=== PATIENT | male | born 1940 | race Caucasian/White ===

== ENCOUNTER 2023-02-20 08:18 | Day surgery (SDC) | payer MEDICARE, OTHER ==
[~2023-02-20] VITALS: Ht 175.3 cm; Wt 71.2 kg
[~2023-02-20 08:18] MED LIST: ALTOPREV40 MG PO; JANUVIA50 MG PO; LISINOPRIL2.5 MG PO; METFORMIN HCL1000 M1 PO; MULTI VITAMIN1 EACH PO; NAPROSYN500 MG PO; TROSPIUM CHLORI20 MG PO
[2023-02-20 08:45] VITALS: BP 138/73
--- NOTE | 2023-02-20 10:51 | NUR ---
02/20/23 Stephon1 Mary Lama 1046-PATIENT ARRIVED TO PACU AWAKE ON RA RR EVEN. PATIENT DENIES PAIN OR NAUSEA. IVF INFUSING. ABDOMEN SOFT ENCOURAGED TO PASS GAS. PATIENT IS PASSING GAS.
[2023-02-20 11:17] VITALS: BP 129/68
--- NOTE | 2023-02-20 18:15 | OR ---
[facility] [address], [place] [address] Signed DATE OF OPERATION: 02/20/2023 SURGEON: Yanet Tee MD PREOPERATIVE DIAGNOSES: 1. Chronic loose stool. 2. History of mild microscopic lymphocytic colitis in 2005 at age 65. 3. Moderate pandiverticulosis. POSTOPERATIVE DIAGNOSES: 1. Moderate pandiverticulosis. 2. Minimal internal hemorrhoid tissue. PROCEDURE: Colonoscopy with hot biopsy. ESTIMATED BLOOD LOSS: None. INDICATIONS: Carter is an 82-year-old diabetic gentleman, asked to see me for a followup screening colonoscopy. I helped him with a colonoscopy in 2005 at the age of 65. He has chronically loose stool. He had mild microscopic lymphocytic colitis on his biopsies back then. He cannot recall if he took any prednisone or budesonide. Sometimes lymphocytic colitis is self-limiting. He said his stools really have not changed, really does not bother him. He said it is two or three times a day. He mowing the grass and so forth. He had been recommended to come back in 10 years. He said he has no family history of colon cancer or polyps. He had done well with Versed and fentanyl previously. In the office, I gave him a pamphlet on colonoscopy. His was with him. We reviewed the nature of the colonoscopy. He understands there is risk including, but not limited to gas bloating, crampy abdominal pain, bleeding, perforation requiring surgery, and missed diagnosis. We also reviewed the written instructions for the bowel prep line by line. He recalls the need for IV conscious sedation. He had expressed understanding and wished to proceed. DESCRIPTION OF PROCEDURE: Carter was taken into our endoscopy suite and placed in the left lateral decubitus position. He was given 3 mg of Versed and 100 mcg of fentanyl to cover the case. A digital rectal exam was performed. He had good sphincter tone. There were no external hemorrhoids. His prostate was absent. There were no nodules. No masses noted. The Electronically Signed By: YANET TEE MD 02/20/23 1815 PATIENT NAME: CARTER KUMAR OPERATIVE REPORT DATE OF : 36 REPORT #: [id number] PHYSICIAN: YANET TEE MD PCP: COURT SALINAS PA-C REPORT IS CONFIDENTIAL AND NOT TO BE RELEASED WITHOUT AUTHORIZATION [facility] [address], [place] [address] Signed adult colonoscope had been introduced and advanced all around into the cecum under direct visualization of camera without difficulty. Overall, his prep was good. He indeed has moderate pandiverticulosis. We could easily see the cecum and his ileocecal valve. The scope was then slowly withdrawn. We took pictures throughout for photodocumentation. Again, he has cmizzels-sf-bwisy size diverticula throughout the entire colon. They were moderate in number and scattered about. There were no polyps. The rectum was unremarkable. Upon retroflexion of scope, there was very minimal internal hemorrhoid tissue. After this, the gas was suctioned out. The colonoscope removed. Carter tolerated the procedure quite well. RECOMMENDATIONS: Carter can follow up as needed for future screening colonoscopies. Yanet Tee MD ALB/MODL /[id number] cc: MD Court Burns PA-C Patient Chart Copies: YANET TEE MD, CHLOE K PA-C ~ Electronically Signed By: YANET TEE MD 02/20/23 1815 PATIENT NAME: CARTER KUMAR Sue OPERATIVE REPORT DATE OF : 36 REPORT #: [id number] PHYSICIAN: YANET TEE MD PCP: COURT SALINAS PA-C REPORT IS CONFIDENTIAL AND NOT TO BE RELEASED WITHOUT AUTHORIZATION
== END 2023-02-20 11:30 | disposition home or self-care (01) ==
LOC: DS 08:18
PROVIDERS: ATTEND Colon & Rectal Surgery
DX: Z12.11 Encounter for screening for malignant neoplasm of colon (principal); K57.30 Diverticulosis of large intestine without perforation or abscess without bleeding; K64.8 Other hemorrhoids; R19.5 Other fecal abnormalities; I10 Essential (primary) hypertension; E11.9 Type 2 diabetes mellitus without complications; E78.5 Hyperlipidemia, unspecified; M19.90 Unspecified osteoarthritis, unspecified site; E78.00 Pure hypercholesterolemia, unspecified; Z85.46 Personal history of malignant neoplasm of prostate; Z79.84 Long term (current) use of oral hypoglycemic drugs; Z79.899 Other long term (current) drug therapy
CPT/HCPCS: 99153; G0500; J2250; J3010; J7121

== ENCOUNTER 2023-08-16 22:32 | Inpatient (IN) | payer MEDICARE, OTHER ==
[~2023-08-16] VITALS: Ht 175.3 cm; Wt 66.6 kg
--- OUTSIDE RECORDS SUMMARY | 2023-08-16 22:40 | XMS ---
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 Ankit VISIT COUNT (12 MO.) 2 [facility] TOTAL 2 NOTE: Visits indicate total known visits. ED/UCC VISIT TRACKING (12 MO.) 08/16/2023 22:33 [facility] [place] TYPE: Emergency COMPLAINT: - RECTAL BLEEDING 08/16/2023 18:04 [facility] [place] TYPE: Emergency COMPLAINT: - RECTAL BLEEDING INPATIENT VISIT TRACKING (12 MO.) No inpatient visits to display in this time frame [email or web address]
[2023-08-16 23:03] LABS: BASOPHILS 0.3 % (0-2); EOSINOPHILS 4.2 % (0-6); HEMATOCRIT 26.2 % (35.0-50.0); LYMPHOCYTES 26.9 % (24-44); MCH 32.1 (27-36); MCHC 34.1 g/dl (30-36); MCV 94.1 fl (81-99); MONOCYTES 8.7 % (0-12); NEUTROPHILS 59.9 % (39-80); PLATELET COUNT 176 K/uL (140-440); RBC 2.79 M/ul (4.3-5.7); RDW 14.1 (10.5-15.0)
[2023-08-17] VITALS (10 sets, daily range): BP systolic 100–147; BP diastolic 52–68
[2023-08-17] LABS: ABO A; ANTIBODY SCREEN NEGATIVE; RH POSITIVE
[2023-08-17 00:01] LABS: IS CROSSMATCH COMPATIBLE
[2023-08-17 00:02] LABS: IS CROSSMATCH COMPATIBLE
--- NOTE | 2023-08-17 00:13 | NUR ---
PT ARRIVES FROM ED, ADMITTED FOR GI BLEED AND COVID POSITIVE. PT ARRIVES ALERT AND ORIENTED X 4, IS FRIENDLY AND TALKATIVE. DENIES PAIN CURRENTLY, DENIES NAUSEA. ADMISSION ASSESSMENT AND ORIENTATION DONE. PT STATES HE HAD COVID SX PRIOR BUT ARE MOSTLY GONE NOW, JUST A LITTLE CONGESTION AND SLIGHT COUGH NOW. PT ARRIVES ON ROOM AIR WITH SPO2 97%, RR 12 AND HR 80'S SINUS RHYTHM.
[2023-08-17 01:09] LABS: BASOPHILS 0.1 % (0-2); EOSINOPHILS 1.7 % (0-6); HEMOGLOBIN 8.8 g/dL (12.0-18.0); LYMPHOCYTES 11.3 % (24-44); MCH 31.8 (27-36); MCHC 33.9 g/dl (30-36); MCV 93.8 fl (81-99); MONOCYTES 5.7 % (0-12); NEUTROPHILS 81.2 % (39-80); PLATELET COUNT 156 K/uL (140-440); RBC 2.77 M/ul (4.3-5.7); RDW 13.9 (10.5-15.0)
--- NOTE | 2023-08-17 02:08 | NUR ---
PT RESTING WITH EYES CLOSED, RESP EVEN AND UNLABORED, HR 80'S SINUS RHYTHM.
--- NOTE | 2023-08-17 04:00 | NUR ---
PT REMAINS RESTING WITH EYES CLOSED, RESP EVEN AND UNLABORED, HR 70-80'S.
--- NOTE | 2023-08-17 05:10 | NUR ---
IN TO DRAW AM LABS, PT AWAKE IN BED, DENIES PAIN/NEEDS.
[2023-08-17 05:45] LABS: BASOPHILS 0.2 % (0-2); EOSINOPHILS 4.6 % (0-6); HEMATOCRIT 24.8 % (35.0-50.0); HEMOGLOBIN 8.5 g/dL (12.0-18.0); LYMPHOCYTES 28.7 % (24-44); MCH 31.8 (27-36); MCHC 34.1 g/dl (30-36); MCV 93.3 fl (81-99); MONOCYTES 8.5 % (0-12); PLATELET COUNT 154 K/uL (140-440); RBC 2.66 M/ul (4.3-5.7)
--- NOTE | 2023-08-17 06:47 | NUR ---
PT UP TO BSC, NO STOOL BUT DID VOID 800MLS YELLOW CLEAR URINE. PT DENIED ANY DIZZINESS/LIGHTHEADEDNESS WHILE UP. HR DID GO FROM 80 TO 110 WHILE UP AND QUICKLY BACK DOWN TO 80'S ONCE HE WAS BACK IN BED.
[2023-08-17 06:54] LABS: ANION GAP 11.5 (7-21); BUN/CREATININE RATIO 23.71 (6.0-28.6); CALCIUM 8.3 mg/dL (8.5-10.1); CREATININE, SERUM 0.97 mg/dL (0.70-1.30); POTASSIUM 4.5 mmol/L (3.5-5.1)
--- NOTE | 2023-08-17 07:34 | NUR ---
REPORT RECEIVED FROM NIGHT RN - PT RESTING IN BED ON BACK WITH EYES CLOSED, RR EVEN AND UNLABORED. CALL LIGHT AT SIDE. VS STABLE ON MONITOR AT RN STATION.
--- NOTE | 2023-08-17 08:28 | NUR ---
RN IN ROOM ROUNDING WITH MD. PT AAO, DENIES PAIN OR NAUSEA. IV SITE PATENT. NO BM THIS AM. BREAKFAST PROVIDED, PT SITTING UP ON EDGE OF BED TO EAT, ABLE TO REPOSITION SELF IN BED INDEPENDENTLY.
--- NOTE | 2023-08-17 09:49 | NUR ---
PT FINISHED WITH BREAKFAST, ATE 100% WITHOUT NAUSEA OR PAIN. UP TO BED SIDE CHAIR TO RECLINE. IN GOOD SPIRITS, TALKATIVE. PLACED PHONE CALL TO UPDATE ON POC. CALL LIGHT IN REACH.
--- NOTE | 2023-08-17 11:03 | NUR ---
PT ASSISTED UP TO BATHROOM STANDBY TO ATTEMPT BM. PT STEADY ON FEET, DENIES DIZZINESS. UNABLE TO PRODUCE BM BUT REPORTS PASSING GAS. BACK TO CHAIR WITH CALL LIGHT AND REMOTE AT BEDSIDE TABLE.
--- NOTE | 2023-08-17 12:45 | NUR ---
RN IN ROOM TO CHECK CBG AND PROVIDE LUNCH. PT SITTING UP IN CHAIR WITHOUT COMPLAINTS.
--- NOTE | 2023-08-17 13:20 | NUR ---
PT ASSISTED UP TO BATHROOM TO HAVE BM - MEDIUM FORMED BM WITH DARRYN RED BLOOD NOTED IN TOILET. PT DENIES DIZZINESS, VS STABLE WITH HR WNL. BACK TO CHAIR WITHOUT DIFFICULTY AMBULATING. CALL LIGHT IN REACH. UPDATED.
[2023-08-17 14:00] LABS: BASOPHILS 0.3 % (0-2); EOSINOPHILS 4.1 % (0-6); HEMATOCRIT 25.5 % (35.0-50.0); HEMOGLOBIN 8.5 g/dL (12.0-18.0); LYMPHOCYTES 23.5 % (24-44); MCH 31.7 (27-36); MCHC 33.3 g/dl (30-36); MCV 95.3 fl (81-99); MONOCYTES 7.1 % (0-12); PLATELET COUNT 167 K/uL (140-440); RBC 2.67 M/ul (4.3-5.7); RDW 14.3 (10.5-15.0)
--- NOTE | 2023-08-17 14:51 | NUR ---
RN ROUNDING ON PT - PROVIDED A CUP OF COFFEE PER REQUEST. PT SITTING IN CHAIR, TALKING ABOUT AND MIL AT HOME. CALL LIGHT IN REACH.
--- NOTE | 2023-08-17 16:04 | NUR ---
PATIENT UP TO BATHROOM TO ATTEMPT TO HAVE A BM. PT STATES HE ONLY HAD GAS, BUT DID VOID. TYPICAL GI BLEED SMELL NOTED FROM PT'S FLATULENCE. PT STEADY ON FEET AND NOW BACK IN CHAIR, RESTING.
--- NOTE | 2023-08-17 20:17 | NUR ---
PT SITTING UP IN RECLINER, HE REPORTS HE HAS NO PAIN OR NAUSEA, HE SAID "I HOPE I GET TO GO HOME TOMORROW, MY BROUGHT MY GOING HOME CLOTHS" V/S STABLE, ASSESSMENT COMPLETE, NO NEW CONCERNS AT THIS TIME, PT REPORTS HE NEEDS TO USE THE BATHROOM.
--- NOTE | 2023-08-17 20:25 | NUR ---
PT USED BATHROOM , HAD FLATUS AND VOIDED, NOT DARK/DULL COLORED BLOOD AND TOILET PAPER. PT AMBULATED WELL, STEADY GAIT.
--- NOTE | 2023-08-17 21:41 | NUR ---
PT SITTING UP AT RECLINER WATCHING TV, HE IS DRINKING HIS DECAF COFFEE HE REQUESTED, FRESH ICE WATER PROVIDED. PT VOICES CONCERNS ABOUT HIS AND THE WORK OF CARING FOR HIS MOTHER GOPI AT END OF LIFE. STAYED IN ROOM TO TALK WITH PT FOR AWHILE ABOUT THIS SITUATION, HE SAID "I THINK I WILL HAVE TO CALL THE REVEREND SOON AND GET MORE HELP" THIS RN SAID "THAT SOUNDS LIKE A GOOD IDEA, TAKIING CARE OF LOVED ONES AT END OF LIFE IS DIFFICULT TWO FOLD, BOTH PHYSICALLY AND EMOTIONALLY" PT NODDED HIS HEAD "YES, IT HAS BEEN"
--- NOTE | 2023-08-17 23:00 | NUR ---
ROUNDING ON PATIENT, PT ALERT AND ORIENTED, HE FEELS HE NEEDS TO USE BATHROOM BEFORE HE TRIES TO SLEEP, THIS RN INTO PATIENT ROOM TO S/L TO AMBULATE TO BATHROOM. NO BM, FLATUS, AND URINE, PT BACK TO BED, HE HAS NO COMPLAINTS OF PAIN OR NAUSEA. NO REQUESTS AT THIS TIME, CALL LIGHT IN REACH.
[2023-08-18] VITALS (15 sets, daily range): BP systolic 103–141; BP diastolic 51–68
--- NOTE | 2023-08-18 00:09 | NUR ---
PT RESTING IN BED EYES CLOSED, ALERT TO RN AT BEDSIDE. NO CONCERNS OR REQUESTS AT THIS TIME
--- NOTE | 2023-08-18 01:16 | NUR ---
PT CALLED NURSES STATION TO NOTIFY NEED TO USE THE BATHROOM. THIS RN INTO PT ROOM, S/L IVF FOR AMBULATION TO BATHROOM, PT VOIDED 300ML IN HAT AND MISSED HAT MEASURE DEVICE. THEN PT BACK TO BED, NO COMPAINT OF PAIN OR NAUSEA. HE REPORTS HE FEELS GOOD. V/S STABLE. NO NEW CONCERNS AT THIS TIME
--- NOTE | 2023-08-18 03:22 | NUR ---
PT RESTING QUIETLY IN BED, EYES CLOSED RESPIRATION RATE 16/MIN, NO DISTRESS NOTED.
--- NOTE | 2023-08-18 04:57 | NUR ---
PATIENT CALLED NURSES STATION TO REPORT HE NEEDS TO USE THE BATHROOM. THIS RN INTO PATIENT ROOM, PT S/L FOR AMBULATION, PT VOIDED MISSING THE COLLECTION HAT, NOTED SMALL AMOUNT OF DARK/DULL/MAROON BLOOD NOTED ON TOILET PAPER. PT REPORTS NO PAIN, NO NAUSEA, NO LIGHT HEADEDNESS OR DIZZINESS WITH ACTIVITY. HE VERBALIZED DESIRE TO DISCHARGE HOME TODAY. V/S, ASSESSMENT AND BLOOD DRAWN FOR LAB THIS AM COMPLETE. NO NEW CONCERNS, PATIENT REPORTS HE HAS NO NEEDS OR COCNERNS AT THIS TIME. HE IS ALERT AND ORIENTED, CALL LIGHT IN REACH.
[2023-08-18 04:59] LABS: HEMATOCRIT 26.1 % (35.0-50.0); HEMOGLOBIN 8.8 g/dL (12.0-18.0); PLATELET COUNT 179 K/uL (140-440)
[2023-08-18 05:05] LABS: BASOPHILS 0.3 % (0-2); EOSINOPHILS 5.7 % (0-6); LYMPHOCYTES 28.7 % (24-44); MCH 31.9 (27-36); MCHC 33.8 g/dl (30-36); MCV 94.5 fl (81-99); MONOCYTES 6.4 % (0-12); NEUTROPHILS 58.9 % (39-80); RBC 2.76 M/ul (4.3-5.7); RDW 14.4 (10.5-15.0)
[2023-08-18 05:14] LABS: ALBUMIN 3.2 g/dL (3.4-5.0); ALBUMIN/GLOBULIN RATIO 1.23 (1.1-2.4); ANION GAP 11.4 (7-21); BILIRUBIN, TOTAL 0.2 ng/dL (0.2-1.0); BUN/CREATININE RATIO 18.26 (6.0-28.6); CALCIUM 8.5 mg/dL (8.5-10.1); CREATININE, SERUM 1.04 mg/dL (0.70-1.30); POTASSIUM 4.4 mmol/L (3.5-5.1); PROTEIN, TOTAL 5.8 g/dL (6.4-8.2)
--- NOTE | 2023-08-18 07:25 | NUR ---
pt awake resting with call light in reach. axo x4
--- NOTE | 2023-08-18 07:55 | NUR ---
pt trsf standby assist for cord managment from bed to chair. steady on feet, denies light headed or any symptoms. set up for meal in chair call light in reach, denies needs, assessment benign, vitals taken.
--- NOTE | 2023-08-18 09:50 | NUR ---
IN ROOM WITH DR ALONSO, PT HAS JUST HAD A 200ML LIQ. BM WITH LG AMT OF PIERRE NOTED - PT NOW NPO WITH A DR TEE SURGICAL CONSULT.
--- NOTE | 2023-08-18 12:07 | NUR ---
pt up in chair with call light in hand, vitals taken, bs checked 231 - clear liq. diet
[2023-08-18] MEDS ORDERED: JANUVIA100 MG PO (12:48)
[2023-08-18 12:59] LABS: BASOPHILS 0.3 % (0-2); EOSINOPHILS 3.7 % (0-6); HEMATOCRIT 24.5 % (35.0-50.0); HEMOGLOBIN 8.4 g/dL (12.0-18.0); LYMPHOCYTES 17.7 % (24-44); MCHC 34.1 g/dl (30-36); MCV 93.8 fl (81-99); NEUTROPHILS 71.3 % (39-80); PLATELET COUNT 163 K/uL (140-440); RBC 2.61 M/ul (4.3-5.7)
--- NOTE | 2023-08-18 14:22 | NUR ---
pt amb with rn to br bm 100 ml liquid red bm. pt light headed, back to bed bp 111/63, hr 74, 100% ra. call light in reach and no needs - watching tv.
--- NOTE | 2023-08-18 16:09 | NUR ---
educated pt on gatorade zero bowel prep/miralax clear liq. diet tonight and npo for procedure tomorrow. pt agrees, denies needs, watching tv with call light.
--- NOTE | 2023-08-18 17:21 | NUR ---
dr lopez here to see pt and update on consult - mirlax intake going well, bs 159 1 unit of insulin given sq. call light in reach.
--- NOTE | 2023-08-18 18:30 | NUR ---
this rn assisting pt to bathroom had 400 ml liq bm/blood, 2 person rn assist pt to stand and pivot trsf to ch from toilet - pt feeling light headed, moved to closer to bed when pt became unresponsive and started to vomit clear liquid emesis - and became limp, rn held forward to clear airway while 2nd rn called code blue, pt came to and vitals taken, pt back to bed and more alert and aware. team at bedside and yesica rn placed 2nd iv site in left arm. ordered blood and cbc -
[2023-08-18 18:50] LABS: BASOPHILS 0.8 % (0-2); EOSINOPHILS 3.9 % (0-6); HEMATOCRIT 20.1 % (35.0-50.0); HEMOGLOBIN 6.7 g/dL (12.0-18.0); LYMPHOCYTES 28.1 % (24-44); MCH 32.1 (27-36); MCHC 33.4 g/dl (30-36); MCV 96.1 fl (81-99); MONOCYTES 4.9 % (0-12); NEUTROPHILS 62.3 % (39-80); PLATELET COUNT 204 K/uL (140-440); RBC 2.09 M/ul (4.3-5.7); RDW 14.2 (10.5-15.0)
[2023-08-18 19:11] LABS: ALBUMIN 2.7 g/dL (3.4-5.0); ALBUMIN/GLOBULIN RATIO 1.23 (1.1-2.4); ANION GAP 17.8 (7-21); BILIRUBIN, TOTAL 0.3 ng/dL (0.2-1.0); BUN/CREATININE RATIO 24.75 (6.0-28.6); CALCIUM 8.1 mg/dL (8.5-10.1); CREATININE, SERUM 1.01 mg/dL (0.70-1.30); POTASSIUM 3.8 mmol/L (3.5-5.1); PROTEIN, TOTAL 4.9 g/dL (6.4-8.2)
--- NOTE | 2023-08-18 19:16 | NUR ---
1ST UNIT OF PRBCs STARTED AT 1905 AT 120 ML/HR FOR THE FIRST 30 ML OF BLOOD INTO LEFT FOREARM. PT TOLERATING WELL. PT IS CONVERSIVE AND HAS MINIMAL RECOLLECTION OF RECENT SYNCOPAL EPISODE. PT IS EXTREMELY PALE.
[2023-08-18 19:40] LABS: IS CROSSMATCH COMPATIBLE
--- NOTE | 2023-08-18 19:45 | NUR ---
PT ALERT AND ORIENTED, PATIENT REPORTS NO PAIN OR NAUSEA AT THIS TIME. DISCUSSED PLAN OF CARE FOR TONIGHT. PATIENT HAS A LOT OF STRESS AT HOME WITH HIS MOTHER IN LAW AT END OF LIFE AND HIS LIFE PROVIDING CARE ALONE AT HOME. PT ASSESSMENT COMPLETE, V/S STABLE, FIRST UNIT OF BLOOD INFUSING.
--- NOTE | 2023-08-18 20:30 | NUR ---
BLOOD..FIRST UNIT OF BLOOD COMPLETE. PATIENT HAS NO SIGNS OR SYMPTOMS OF ADVERSE TRANSFUSION REACTION AT THIS TIME. DR.MCBEE WOODALL SEE PATIENT AND DISCUSS PROCEDURE PLANNED FOR TOMORROW. PATIENT IS AGREEABLE TO PROCEDURE AND DOES NOT HAVE ANY FURTHER QUESTIONS FOR .
--- NOTE | 2023-08-18 20:40 | NUR ---
BLOOD..SECOND UNIT OF BLOOD STARTED AT THIS TIME. PT CONITNUES TO HAVE NO SIGNS OR SYMPTOMS OF TRANSFUSION REACTIONS. V/S STABLE, ASSESSMENT COMPLETE
--- NOTE | 2023-08-18 21:45 | NUR ---
PT RESTING IN BED, EYES CLOSED RESP RATE 15/MIN, SLIGHT SNORE NOTED, V/S STABLE. BLOOD INFUSING. CALL LIGHT IN REACH
--- NOTE | 2023-08-18 21:50 | NUR ---
CALLED TO TALK WITH THIS RN TO PLAN OF CARE, SAID HE ORDERED 2 ADDITIONAL UNITS OF BLOOD TO TRANSFUSE. THIS RN ASKED ABOUT A CBC TIME AFTER FINISHED TRANFUSING INITIAL 2 UNITS OF BLOOD, HE SAID THIS WILL NOT CHNAGE PLAN OF CARE, WILL CHECK CBC WITH AM LAB DRAW.
--- NOTE | 2023-08-18 22:15 | NUR ---
ROUNDING, PT RESTING IN BED EYES CLOSED RESP RATE 18, NO DISTRESS NOTED. PATIENT ALERT TO RN, BLOOD FINISHED AT 2215, CHECK PT DEPENDS NOTED SMALL BURGUNDY PASTE STOOL IN DEPENDS, PATIENT CHANGED AT THIS TIME, BARRIER CREAM APPLIED TO GLUTEAL CLEFT, MILD REDNESS, NO BREAKDOWN. PATIENT REPORTS NO PAIN OR NAUSEA, HE REPORTS FLATUS.
--- NOTE | 2023-08-18 22:57 | NUR ---
CALLED IN REGARDS TO ADMINISTRATION OF BLOOD ORDER CHANGE, TO CONFIRM AT THIS TIME HE STILL WANTS 2 ADDITIONAL UNITS FOR A TOTAL OF 4 UNITS OF BLOOD.
--- NOTE | 2023-08-18 23:42 | NUR ---
BLOOD..THIRD UNIT OF BLOOD STARTED AT 2320. INFUSED FIRST 15 MIN, NO SIGNS OR SYMPTOMS OF TRANSFUSION REACTION. V/S STABLE NOTED TEMP 99.2, AFTER TWO WARM BLANKET PROVIDED AND ROOM TEMP TURNED UP ONE HOUR AGO.
[2023-08-19] VITALS (27 sets, daily range): BP systolic 108–151; BP diastolic 48–87
--- NOTE | 2023-08-19 00:45 | NUR ---
PT SAT TO SIDE OF BED TO ATTEMPT TO URINATE, PT UNABLE TO VOID SITTING, PT STOOD AT BEDSIDE WITH CONTACT ASSIST, PT VOIDED 150ML, HEART RATE INCREASED TO 118/MIN, THIS RN COULD FEEL PT TREMORS, HAD PT SIT DOWN AND ASSISTED BACK TO BED, PT SAID HE DID NOT FEEL DIZZY OR NAUSEA. BLADDER SCANNED PT FOR GREATER THAN 530ML POST VOID. CALLED TO REPORT THIS AND UPDATE THIRD UNIT OF BLOOD COMPLETED TRASFUSING, ON ASSESSMENT AFTER SECOND UNIT COMPLETED PT HAVING BOUNDING PEDAL AND RADIAL PULSES, IVF HAS BEEN ON TKO SINCE ASSESSMENT, GAVE ORDER TO HOLD IVF UNTIL DAYSHIFT, AND COMPLETE 4 OF 4 UNITS OF BLOOD, ALSO NEW ORDER FOR STRAIGHT OR GAYTAN CATHETER, TO ALLOW PT TO DECIDE, PT REPORTS THAT HE HAS HAD UROLOGY DUE TO DIFFICULTY VOIDING AND HE WOULD LIKE TO HAVE GAYTAN PLACED FOR NOW.
--- NOTE | 2023-08-19 01:10 | NUR ---
REPORT RECEIVED AND CARE ASSUMED FROM XIOMARA BUCHANAN. PT VSS AND NAD NOTED VIA DIRECT OBSERVATION, CONTINUOUS MONITOR AND PT VERBALIZATION.
--- NOTE | 2023-08-19 01:52 | NUR ---
GAYTAN CATHETER PLACED, STERILE FIELD MAINTAINED THROUGHOUT PROCEDURE PT TOLERATED WELL, HE REPORTS NO PAIN, REQUIRED 14 GAUGE COUDE TO PASS THROUGH STRITCHER. CLEAR YELLOW DILUTE URINE RETURNED.
--- NOTE | 2023-08-19 01:56 | NUR ---
FOURTH UNIT OF BLOOD TRANSFUSING AT THIS TIME. PT TOLERATING WELL, HE REMAINS ON ROOM AIR. V/S STABLE. PT ALERT AND ORIENTED.
--- NOTE | 2023-08-19 02:20 | NUR ---
PT STATES HE IS COMFORTABLE, DENIES COMPLAINTS. PT REQUESTED AND PROVIDED CHAPSTICK, DENIES ADDITIONAL NEEDS AT THIS TIME. PT VERBALIZES UNDERSTANDING TO USE CALL LIGHT WITH NEEDS. BED IN LOW, LOCKED POSITION FOR PT SAFETY. 4 UNIT PRBC INFUSING PER ORDERS. VSS AND NAD NOTED VIA DIRECTO BSERVATION, PT STATEMENT AND CONTINUOUS MONITOR.
--- NOTE | 2023-08-19 03:15 | NUR ---
4TH UNIT OF PRBC COMPLETE WITHOUT INCIDENT OR REACTION. PT DENIES COMPLAINTS OR NEEDS AT THIS TIME. CALL LIGHT IN REACH, BED IN LOW, LOCKED POSITION. VSS AND NAD NOTED VIA CONTINUOUS MONITOR, DIRECT OBSERVATION AND PT VERBALIZATION.
--- NOTE | 2023-08-19 04:20 | NUR ---
SHIFT ASSESSMENT COMPLETE. SEE [employer] FOR DETAILS. PT RESTING IN BED, EYES CLOSED, EASILY AWAKENED TO VOICE. PT DENIES NEEDS AT THIS TIME. LUCILA PATENT. BED IN LOW, LOCKED POSITION. PT VERBALIZES UNDERSTANDING TO USE CALL LIGHT WITH NEEDS. VSS AND NAD NOTED VIA DIRECT OBSERVATION, PT VERBALIZATION AND CONTINUOUS MONITOR.
[2023-08-19 05:42] LABS: BASOPHILS 0.4 % (0-2); EOSINOPHILS 1.6 % (0-6); HEMATOCRIT 32.8 % (35.0-50.0); LYMPHOCYTES 12.4 % (24-44); MCH 29.9 (27-36); MCHC 33.6 g/dl (30-36); MONOCYTES 6.3 % (0-12); NEUTROPHILS 79.3 % (39-80); PLATELET COUNT 129 K/uL (140-440); RBC 3.68 M/ul (4.3-5.7); RDW 15.5 (10.5-15.0)
[2023-08-19 05:59] LABS: ALBUMIN 2.7 g/dL (3.4-5.0); ALBUMIN/GLOBULIN RATIO 1.35 (1.1-2.4); ANION GAP 14.2 (7-21); BILIRUBIN, TOTAL 0.5 ng/dL (0.2-1.0); BUN/CREATININE RATIO 23.86 (6.0-28.6); CREATININE, SERUM 0.88 mg/dL (0.70-1.30); POTASSIUM 4.2 mmol/L (3.5-5.1); PROTEIN, TOTAL 4.7 g/dL (6.4-8.2)
[2023-08-19 06:18] LABS: ABO A; ANTIBODY SCREEN NEGATIVE; RH POSITIVE
[2023-08-19 06:22] LABS: INR 1.16 (0.80-1.30); PROTIME 14.4 Sec (11.2-14.2)
[2023-08-19 06:24] LABS: PARTIAL THROMBOPLASTIN TIME 24.5 Sec (22.9-41.3)
--- NOTE | 2023-08-19 06:54 | NUR ---
DR. DUFF CALLED FOR PT STATUS UPDATE. PT RESTING IN BED WITH EYES OPEN. PT DENIES NEEDS AT THIS TIME. VSS AND NAD NOTED VIA DIRECT OBSERVATION AND CONTINUOUS MONITOR.
--- NOTE | 2023-08-19 07:11 | NUR ---
SHIFT REPORT GIVEN AND CARE ENDORSED TO DAY SHIFT ELECTROPLATING LABORER. PT VSS AND NAD NOTED VIA CONTINUOUS MONITOR.
--- NOTE | 2023-08-19 07:30 | NUR ---
REPORT RECEIVED. PATIENT IS RESTING IN BED.
--- NOTE | 2023-08-19 08:45 | NUR ---
ASSESSMENT DONE. DENIES PAIN. PLAN FOR COLONOSCOPY TODAY. PATIENT AWARE. IVF PATENT. NO ACTIVE BLEEDING NOTED.
--- NOTE | 2023-08-19 08:45 | NUR ---
PATIENT AWAKE IN BED, VITALS AND I&OS CHARTED. GAYTAN EMPTIED. PATIENT IS NPO, ORAL SWABS PROVIDED FOR COMFORT. DENTURES IN MOUTH. CALL LIGHT IN EASY REACH, [place]OTH PROVIDED FOR FACE AND HANDS. NO OTHER NEEDS AT THIS TIME
--- NOTE | 2023-08-19 10:30 | NUR ---
LAYING IN BED WATCHING TV. DENIES PAIN. NO FUTHER BM THIS AM
--- NOTE | 2023-08-19 10:54 | NUR ---
UR NOTE: MCG MET OBSERVATION ON ADMIT MET INPATIENT STAY ON 08/18 WITH CONTINUED ACTIVE BLEEDING AND DECREASING HGB
--- NOTE | 2023-08-19 11:55 | NUR ---
ACCUCHECK-[id number]. INSULIN HELD PATIENT NPO FOR COLONSCOPY.
--- NOTE | 2023-08-19 12:00 | NUR ---
REMAINS NPO. COLONOSCOPY TO BE DONE THIS AFTERNOON. ASSESSMENT UNCHANGED.
--- NOTE | 2023-08-19 12:31 | NUR ---
PATIENT AWAKEIN BED. VITALS AND I&OS CHARTED. GAYTAN EMPTIED AND CHARTED. RN AT BEDSIDE. PATIENT REPOSITIONED FOR COMFORT.
--- NOTE | 2023-08-19 14:00 | NUR ---
NAPPING. NO DISTRESS NOTED.
--- NOTE | 2023-08-19 15:15 | NUR ---
INC OF RUST COLORED STOOL. LR ON STRAIGHT TUBING HUNG. DENIES PAIN.
--- NOTE | 2023-08-19 15:55 | NUR ---
TO OR VIA STRETCHER ACCOMP BY OR STAFF FOR COLONOSCOPY.
--- NOTE | 2023-08-19 17:15 | NUR ---
RETURN TO CCU. PATIENT IS SOMULENT. RECEIVED 80 MG OF PROPOFOL DURNING COLONOSCOPY. REPORT RECEIVED. IVF INFUSING TO LEFT WRIST IV SITE.
--- NOTE | 2023-08-19 19:46 | CONS ---
[facility] [address], [place] [address] Signed DATE OF CONSULTATION: 08/18/2023 REQUESTING PHYSICIAN: Bashir Christina MD. PROBLEM: Hematochezia, known diverticulosis. HISTORY: This 83-year-old white male, was admitted by Dr. Francisco Park, hospitalist on August 16, 2023, with blood per rectum. The patient has been relatively stable since admission to the hospital. Care was assumed by Dr. Christina and the patient was noted to have additional relatively bright blood per rectum. He was noted to have a hematocrit in the mid 20s. Additional and persistent rectal bleeding was noted by Dr. Christina, and on that basis, consultation was made early in the day for consideration of colonoscopy tomorrow. A MiraLAX based bowel prep was initiated by Dr. Christina anticipating my evaluation later in the day. Notably, his hematocrit yesterday, August 17 was 24.8, rising to 25.5 and this morning at 26.1, then 24.5. During the course of his bowel preparation with MiraLAX, he was having a bowel movement and had rather significant syncopal changes as well as three bloody bowel movements during the course of his bowel prep through the course of today. A rapid response team was called and he had prompt recovery upon being returned to bed. His hematocrit was obtained and was 20.1. Transfusion therapy is underway at this time. The patient feels quite well overall and is hemodynamically stable at this time. His heart rate is noted to be 87, blood pressure 116/55. He did have some emesis during the course of his recent episode, which showed no evidence of blood whatsoever. Additional blood is being transfused at this time, at least 2 units anticipating re-evaluation of hematocrit following transfusion. The patient has no complaints of abdominal pain. He has no shortness of breath or other particular symptoms at this time. Notably, the patient has undergone colonoscopy by Dr. Yanet Tee in the past several months, confirming diverticulosis. The patient is and is caring for his [id number] who is 89 years old. End of life issues are being organized for her. Electronically Signed By: JEFFERSON DUFF MD 08/19/231945 PATIENT NAME: TUAN KUMAR CONSULTATION DATE OF : 36 REPORT #: [id number] PHYSICIAN: JEFFERSON DUFF MD PCP: GIN SALINAS PA-C REPORT IS CONFIDENTIAL AND NOT TO BE RELEASED WITHOUT AUTHORIZATION [facility] [address], [place] [address] Signed The patient is remarkably Corey for his advanced years. He shows no signs or symptoms of dementia in any way and is a reliable historian. Review of lab studies from today show normal electrolytes. CO2 is low at 19. Liver enzymes are normal. Glucose 218. Electrolytes normal. His admission hematocrit was 24.5, now currently 20.1. Serology showed positive coronavirus; his [id number] had coronavirus approximately 6 weeks ago. The patient believes that is contributing to her imminent demise now, though she is not in the hospital setting. Review of his colonoscopy report from February 20, 2023, confirmed moderate pandiverticulosis and minimal internal hemorrhoidal changes. The patient has no knowledge of family history of colon cancer or other colonic problems. MEDICATIONS: At admission included Naprosyn, lovastatin, multivitamins, metformin, lisinopril, Januvia, and trospium. To my knowledge, no coagulation studies have been obtained thus far. REVIEW OF SYSTEMS: He denies any dysphagia or hematemesis. He has no abdominal pain. He has no back pain and no shortness of breath. He has no chest pain. PHYSICAL EXAMINATION: GENERAL: An elderly white man who appears younger than his stated age of 83 years. BMI is 21.7. NECK: Trachea is midline. He has no hoarseness. There is no cervical adenopathy. CHEST: Shows normal respiratory excursion. HEART: Pulses regular at 88. ABDOMEN: Completely soft and easily palpated. There is no palpable mass. No aortic aneurysm. No tenderness. EXTREMITIES: Show no clubbing, cyanosis, or edema. LAB STUDIES: As described. ASSESSMENT AND PLAN: The patient has hematochezia, which was his presenting complaint on admission on August 16. I have conferred with Dr. Christina and plans were made for colonoscopy tomorrow as long as the patient remains stable and without sign for more urgent colonoscopy. A bowel prep appears to have worked reasonably well and his vagal episode associated with it, though notable has resolved entirely. Transfusion is underway as it should be. I will ask that coag studies be undertaken, though they likely will be normal. He is certainly on no listed anticoagulant that I can see. Electronically Signed By: JEFFERSON DUFF MD 08/19/231945 PATIENT NAME: TUAN KUMAR CONSULTATION DATE OF : 36 REPORT #: [id number] PHYSICIAN: JEFFERSON DUFF MD PCP: GIN SALINAS PA-C REPORT IS CONFIDENTIAL AND NOT TO BE RELEASED WITHOUT AUTHORIZATION [address] [address] Signed The risk of bleeding, infection, and perforation related to colonoscopy was reviewed with him. Most of his lower gastrointestinal bleeding related to diverticulosis resolves on its own without specific intervention, but on occasion, clips or other interventions for hemostatic control are required. We are hopeful that he would not require emergent colectomy, though that is a possibility should a bleeding site not be fully identified or controlled. MD CARYL Barnes/ANILA /[id number] cc: MD Yanet Souza MD Dr. Hilborn Chloe K Norris, PA-C Copies: YANET TEE MD, CHLOE K PA-C ~ Electronically Signed By: JEFFERSON DUFF MD 08/19/23 1946 PATIENT NAME: TUAN KUMAR CONSULTATION DATE OF : 36 REPORT #: [id number] PHYSICIAN: JEFFERSON DUFF MD PCP: GIN SALINAS PA-C REPORT IS CONFIDENTIAL AND NOT TO BE RELEASED WITHOUT AUTHORIZATION
--- NOTE | 2023-08-19 19:46 | OR ---
[facility] [address], [place] [address] Signed DATE OF OPERATION: 08/19/2023 SURGEON: Jefferson Duff MD PREOPERATIVE DIAGNOSES: Recurrent lower gastrointestinal bleeding (long-standing known diverticulosis and distant history of lymphocytic colitis). POSTOPERATIVE DIAGNOSES: Extensive diverticulosis. No evidence of active bleeding or source of bleeding. No evidence of colitis. PROCEDURE: Total colonoscopy to cecum. ANESTHESIA: Intravenous sedation; propofol infusion, Jefferson Sykes CRNA INDICATIONS: This 83-year-old white male was admitted by Dr. Park and care assumed by Dr. Christina on August 16, 2023, with lightheadedness and dark red blood per rectum. Consultation was undertaken on the basis of his persistent anemia and ongoing bleeding. During his bowel prep, anticipating colonoscopy yesterday he did have a syncopal episode, which resolved promptly. He had a hematocrit of 24.8 on August 17, 24.5 on August 18 and underwent transfusion therapy to hematocrit of 33. He shows no sign of overt bleeding now and did tolerate the bowel prep ultimately. He is now to undergo colonoscopy to better characterize the problem, assess for ongoing bleeding and treat as appropriate. He understands the risk of bleeding, infection, and perforation related to colonoscopy and wished to proceed. FINDINGS: There was a fair amount of old blood remaining within the colonic effluent. There was no sign of clot. No sign of bright blood and no sign of active bleeding. Complete colonoscopy was undertaken to the cecum; this was rather prolonged and complicated colonoscopy on the basis of these factors. The right and transverse colon appeared to be free of any bleeding and the likely source of any bleeding was more or likely the left colon or sigmoid. The rectum showed no sign of and he certainly had no sign of actual neoplasm. It is my belief that his bleeding has been from sigmoid or left colon. Electronically Signed By: JEFFERSON DUFF MD 08/19/231945 PATIENT NAME: TUAN KUMAR OPERATIVE REPORT DATE OF : 36 REPORT #: [id number] PHYSICIAN: JEFFERSON DUFF MD PCP: COURT REYNA PA-C REPORT IS CONFIDENTIAL AND NOT TO BE RELEASED WITHOUT AUTHORIZATION [facility] [address], [place] [address] Signed DESCRIPTION OF PROCEDURE: The patient was brought to the endoscopy suite and placed in the lateral decubitus position, given intravenous sedation with propofol infusional sedation. Digital rectal examination showed a fair amount of residual gelatinous old blood. There was no sign of bright blood. An Olympus video colonoscope was passed in the rectum and manipulated throughout the colon. Diverticulosis in the sigmoid and left colon was extensive. Copious irrigation was required to advance the scope. The scope was ultimately advanced to the cecum. The ileocecal valve and appendiceal orifice appeared normal. The scope was withdrawn from that point and notably the cecum and right colon appeared to have little if any blood as did the transverse colon. Withdrawal through the left colon including the splenic flexure showed extensive diverticulosis throughout. There was one area in the sigmoid, which I thought may have some stigmata of fresh bleeding, but could never be reidentified to allow for application of hemoclip, but certainly no sign of ongoing bleeding was noted. Further withdrawal confirmed diverticulosis in the distal sigmoid. The rectum itself appeared normal. Retroflexed view showed no evidence of rectal neoplasm or hemorrhoidal tissue to account for bleeding. Scope was straightened, withdrawn and removed. The patient was taken to the recovery room in good condition. CONCLUDING DIAGNOSIS: GI bleeding most likely from diverticulosis, most probably sigmoid and left colon. PLAN: If recurrent significant bleeding should occur, consideration will be made for a tagged red cell scan. Colectomy directed by a bleeding scan would be reasonable if necessary. MD CARYL Barnes/MODL /[id number] cc: Dr. Carri Park Electronically Signed By: JEFFERSON DUFF MD 08/19/231945 PATIENT NAME: TUAN KUMAR OPERATIVE REPORT DATE OF : 36 REPORT #: [id number] PHYSICIAN: JEFFERSON DUFF MD PCP: COURT REYNA PA-C REPORT IS CONFIDENTIAL AND NOT TO BE RELEASED WITHOUT AUTHORIZATION [address] [place], [place] [address] PA-C Copies: COURT REYNA PA-C ~ Electronically Signed By: JEFFERSON DUFF MD 08/19/23 1946 PATIENT NAME: TUAN KUMAR OPERATIVE REPORT DATE OF : 36 REPORT #: [id number] PHYSICIAN: JEFFERSON DUFF MD PCP: COURT REYNA PA-C REPORT IS CONFIDENTIAL AND NOT TO BE RELEASED WITHOUT AUTHORIZATION
[2023-08-19 20:22] LABS: BASOPHILS 0.2 % (0-2); EOSINOPHILS 3.6 % (0-6); HEMATOCRIT 35.7 % (35.0-50.0); HEMOGLOBIN 11.9 g/dL (12.0-18.0); LYMPHOCYTES 15.6 % (24-44); MCH 30.3 (27-36); MCHC 33.5 g/dl (30-36); MCV 90.4 fl (81-99); MONOCYTES 7.2 % (0-12); NEUTROPHILS 73.4 % (39-80); PLATELET COUNT 129 K/uL (140-440); RBC 3.95 M/ul (4.3-5.7); RDW 15.5 (10.5-15.0)
[2023-08-20] VITALS (10 sets, daily range): BP systolic 101–132; BP diastolic 59–91
[2023-08-20 05:39] LABS: BASOPHILS 0.4 % (0-2); EOSINOPHILS 5.1 % (0-6); HEMATOCRIT 31.1 % (35.0-50.0); HEMOGLOBIN 10.4 g/dL (12.0-18.0); MCH 29.8 (27-36); MCHC 33.4 g/dl (30-36); MCV 89.3 fl (81-99); NEUTROPHILS 67.5 % (39-80); PLATELET COUNT 126 K/uL (140-440); RBC 3.48 M/ul (4.3-5.7); RDW 15.5 (10.5-15.0)
[2023-08-20 05:56] LABS: ALBUMIN 2.3 g/dL (3.4-5.0); ALBUMIN/GLOBULIN RATIO 1.05 (1.1-2.4); ANION GAP 11.7 (7-21); BILIRUBIN, TOTAL 0.4 ng/dL (0.2-1.0); BUN/CREATININE RATIO 12.34 (6.0-28.6); CALCIUM 8.1 mg/dL (8.5-10.1); CREATININE, SERUM 0.81 mg/dL (0.70-1.30); POTASSIUM 3.7 mmol/L (3.5-5.1); PROTEIN, TOTAL 4.5 g/dL (6.4-8.2)
--- NOTE | 2023-08-20 07:50 | NUR ---
report from keyona rn, pt in bed with call light in reach, pt resting hr 78
--- NOTE | 2023-08-20 08:00 | NUR ---
PATIENT AWAKE IN BED, VITALS AND I&OS CHARTED/GAYTAN EMPTIED. WASHCLOTH PROVIDED FOR FACE AND HANDS, DENTURES IN. PATIENT ASSISTED TO RECLINER FOR BREAKFAST, TOLERATED WELL. LINEN CHANGED. CALL LIGHT IN EASY REACH. PATIENT RECEIVED CALL FROM STATING HER MOTHER ILL MOTHER AT 0800 THIS MORNING. RN IN ROOM AT THIS TIME
--- NOTE | 2023-08-20 08:18 | NUR ---
call from pt for update, trsf to pt in room, up in for meal. call light in reach.
--- NOTE | 2023-08-20 08:43 | NUR ---
PT UP IN , DENIES NEEDS, REPORTS CALLED AND HIS MOTHER IN LAW PASSED THIS AM AT HIS HOME WITH . PT REPORTS RELEIF THAT SHE IS AT [facility].
[2023-08-20 12:18] LABS: BASOPHILS 0.2 % (0-2); EOSINOPHILS 4.6 % (0-6); HEMATOCRIT 32.3 % (35.0-50.0); HEMOGLOBIN 10.7 g/dL (12.0-18.0); LYMPHOCYTES 18.1 % (24-44); MCH 30.2 (27-36); MCHC 33.2 g/dl (30-36); MONOCYTES 7.6 % (0-12); NEUTROPHILS 69.5 % (39-80); PLATELET COUNT 126 K/uL (140-440); RBC 3.55 M/ul (4.3-5.7); RDW 15.8 (10.5-15.0)
--- NOTE | 2023-08-20 12:56 | NUR ---
EXERCISED MINISTRY OF PRESENCE PT TALKED OF [id number] AND HER PRESENCE IN HIS LIFE. ALSO TALKED OF INCIDENT THAT PROMPTED HOSPITAL VISIT. CONCERNED WITH PATH FORWARD AND LOOKING FORWARD TO CONVERSATION WITH DR. DUFF. EXITED ROOM WHEN ARRIVED FOR CONSULT. ASSURED PT OF MY ONGOING PRAYERS. PRAYED FOR PEACE AND COMFORT FOR FAMILY AND HEALING FOR PT.
[2023-08-20] MEDS ORDERED: PROTONIX40 MG PO (13:21)
--- NOTE | 2023-08-20 13:37 | NUR ---
rn in to dc pt yajaira and sl iv per dr lopez. pt up in chair for reg diet.
--- NOTE | 2023-08-20 14:22 | NUR ---
FOLLOW UP APPOINMENT WITH PCP MADE AT THIS TIME
--- NOTE | 2023-08-20 15:56 | NUR ---
DISCHARGE SUMMARY SENT TO PCP AT THIS TIME
--- NOTE | 2023-08-20 16:10 | NUR ---
DR ALONSO IN TO SEE PT, DC ORDERS FOR TODAY F/U WITH PCP, OMEGA SAID NO F/U NEEDED.
--- NOTE | 2023-08-20 16:39 | NUR ---
PATIENT AWAKE IN RECLINER, IN ROOM. D/C VITALS CHARTED, IV REMOVED. PATIENT DRESSING IN PERSONAL CLOTHING.
--- NOTE | 2023-08-20 17:08 | NUR ---
UR NOTE: MCG MET CASTROINTESTINAL BLEEDING, LOWER (ISC) GL DAY 2 AND GL DAY 3 PLAN FOR DISCHARGE PER DISCHARGE SUMMARY
== END 2023-08-20 17:00 | disposition home or self-care (01) | DRG 377 ==
LOC: ED 22:32 → CCU 22:34
PROVIDERS: Emergency Medicine; Family Medicine; Surgery; ADMIT Family Medicine; ATTEND Family Medicine
PROC: 30233N1 Transfusion of Nonautologous Red Blood Cells into Peripheral Vein, Percutaneous Approach (ICD-10-PCS; 2023-08-18)
PROC: 8E0ZXY6 Isolation (ICD-10-PCS; 2023-08-18)
PROC: 0DJD8ZZ Inspection of Lower Intestinal Tract, Via Natural or Artificial Opening Endoscopic (ICD-10-PCS; principal; 2023-08-19 15:30)
DX: K57.31 Diverticulosis of large intestine without perforation or abscess with bleeding (principal); U07.1 COVID-19; D62 Acute posthemorrhagic anemia; E11.9 Type 2 diabetes mellitus without complications; I10 Essential (primary) hypertension; I95.9 Hypotension, unspecified; E78.00 Pure hypercholesterolemia, unspecified; Z90.49 Acquired absence of other specified parts of digestive tract; Z79.899 Other long term (current) drug therapy; Z79.84 Long term (current) use of oral hypoglycemic drugs; Z98.890 Other specified postprocedural states; Z88.7 Allergy status to serum and vaccine
CPT/HCPCS: 00811; 36415; 80048; 80053; 85025; 85610; 85730; 86850; 86900; 86901; 86922; 96361; 96374; 96376; 99285; C9113; C9803; G0378; J1815; J2704; J7030; P9016; U0002

== ENCOUNTER 2024-03-04 16:11 | Emergency (ER) | payer MEDICARE, OTHER ==
[~2024-03-04] VITALS: Ht 175.3 cm; Wt 67.0 kg
[~2024-03-04 16:11] MED LIST changes: +JANUVIA100 MG PO; +PROTONIX40 MG PO
[2024-03-04] MEDS ORDERED: CEFAZOLIN SOD 1,000 MG/10 ML VIAL IM ONE (16:45)
[2024-03-04] MEDS ORDERED: HYDROCODONE/ACETA 7.5/325 TAB PO ONE (16:45)
[2024-03-04] MEDS ORDERED: DIPHTH,PERTUSS(ACELL),TET VAC 0.5 ML SYRINGE IM ONE (16:45)
[2024-03-04] MEDS ORDERED: CEFAZOLIN SODIUM 1 GM/10 ML SYR IV ONE (17:00)
[2024-03-04] MEDS ORDERED: CEPHALEXIN500 MG PO (18:24)
[2024-03-04 18:49] VITALS: BP 133/73
== END 2024-03-04 18:49 | disposition home or self-care (01) ==
LOC: ED 16:11
DX: S63.125A Dislocation of interphalangeal joint of left thumb, initial encounter (principal); S61.012A Laceration without foreign body of left thumb without damage to nail, initial encounter; S51.012A Laceration without foreign body of left elbow, initial encounter; S51.811A Laceration without foreign body of right forearm, initial encounter; E11.9 Type 2 diabetes mellitus without complications; I10 Essential (primary) hypertension; W18.30XA Fall on same level, unspecified, initial encounter; Z79.899 Other long term (current) drug therapy; Z79.84 Long term (current) use of oral hypoglycemic drugs
CPT/HCPCS: 28660; 73080; 73140; 90471; 90715; 99283-25; A9270; J0690